=== PATIENT | female | born 1975 | race Caucasian/White ===

== ENCOUNTER 2019-03-17 08:01 | Emergency (ER) | payer MEDICAID ==
[~2019-03-17] VITALS: Ht 172.7 cm; Wt 62.1 kg
[2019-03-17 08:11] VITALS: BP 112/58
--- NOTE | 2019-03-17 08:15 | NUR ---
ED Nurse Note: pt c/o L earache after flying ermd at bedside awaiting orders
[2019-03-17] MEDS ORDERED: AUGMENTIN 875-1 EAC1 ORAL (08:20)
--- NOTE | 2019-03-17 08:21 | Emergency Room Report ---
History of Present Illness General Chief Complaint: Earache Source: Patient Present Illness HPI 43-year-old female history of recurrent otitis media presents with left ear pain x 1 week, aching nature, aggravated with flying, alleviated with not flying , no fevers or chills, no cough or congestion, patient presents for evaluation Allergies: Uncoded Allergies: "ANTIBIOTIC" (Allergy, Unknown, 03/17/19) Patient History Past Medical History: see triage record Last Menstrual Period: february 28 Now: No Reviewed Nursing Documentation: PMH: Agreed; PSxH: Agreed Nursing Documentation-PMH Past Medical History: No Stated History Review of Systems ENT: Reports: ear pain All Other Systems: negative except mentioned in HPI Physical Exam Vital Signs Date Time Temp Pulse Resp B/P (MAP) Pulse Ox O2 Delivery O2 Flow Rate FiO2 03/17/19 08:07 97.9 66 18 112/58 (76) 98 Room Air Sp02 EP Interpretation: reviewed, normal General Appearance: well appearing, no apparent distress, alert Head: normocephalic, atraumatic Eyes: bilateral eye PERRL, bilateral eye EOMI ENT: uvula midline, moist mucus membranes, other - Left ear fullness, no distortion of architecture, mild redness, right ear normal Neck: supple, thyroid normal, supple/symm/no masses Respiratory: lungs clear, no respiratory distress, no retraction, no accessory muscle use Cardiovascular #1: normal peripheral pulses, regular rate, rhythm, no edema, no gallop, no murmur Gastrointestinal: non tender, soft, no guarding, no rebound Musculoskeletal: normal inspection Neurologic: alert, oriented x3 Psychiatric: mood/affect normal Skin: no rash, warm/dry Medical Decision Making Diagnostic Impression: Primary Impression: Earache, left Additional Impression: Otitis media ER Course Patient with possible otitis media of the left ear, will provide patient with antibiotic, disposition home with return precautions Last Vital Signs Date Time Temp Pulse Resp B/P (MAP) Pulse Ox O2 Delivery O2 Flow Rate FiO2 03/17/19 08:11 97.9 18 112/58 98 Room Air 03/17/19 08:07 66 Disposition: HOME, SELF-CARE Condition: Stable Scripts Amoxicillin/Potassium Clav 875-125* (AUGMENTIN 875-125 TABLET*) 1 Each Tablet 1 TAB ORAL TWICE A DAY, #14 TAB Prov: Chris Melara MD 03/17/19 Referrals: [facility] Departure Forms: Return to Work Patient Instructions: Otitis Media, Adult, [id number] Additional Instructions: The patient was provided with discharge instructions, notified to follow-up with a primary care doctor and or specialist in the next 24-48 hours, and to return to the ED if they have worsening of their symptoms. Please note that this report is being documented using [employer] technology. This can lead to erroneous entry secondary to incorrect interpretation by the dictating instrument. Chris Melara MD Mar 17, 2019 08:21
[2019-03-17 08:33] VITALS: BP 112/58
--- NOTE | 2019-03-17 08:35 | NUR ---
ED Nurse Note: Pt cleared by health care Provider for discharge. DC instructions/prescription was given and explained to pt and verbalized understanding of teachings. All medical deviecs such as ID band removed. Pt is AAO x4, ambulatory and left with all personal belongings.
== END 2019-03-17 08:32 | disposition home or self-care (01) ==
LOC: EMR 08:30
DX: H66.92 Otitis media, unspecified, left ear (principal)
CPT/HCPCS: 99282